=== PATIENT | male | born 1945 | race Caucasian/White ===

== ENCOUNTER → 2023-10-13 12:56 | Outpatient (REF) | payer MEDICARE, OTHER, SELFPAY | LOC: HWEVLT 12:56 | PROVIDERS: ATTENDING PHYSICIAN Radiology Diagnostic Radiology | DX: I83.891 Varicose veins of right lower extremity with other complications (principal) | CPT/HCPCS: 93971 ==

== ENCOUNTER 2024-06-13 13:54 | Outpatient (RCR) | payer OTHER, SELFPAY | END 2024-06-13 23:59 | disposition home or self-care (01) | LOC: RPT 13:54 | PROVIDERS: ATTENDING PHYSICIAN Orthopaedic Surgery; FAMILY PHYSICIAN Family Medicine | DX: M75.81 Other shoulder lesions, right shoulder (principal); Z73.6 Limitation of activities due to disability | CPT/HCPCS: 97010; 97110; 97112; 97162 ==

== ENCOUNTER 2024-07-11 08:53 | Outpatient (RCR) | payer OTHER, SELFPAY | END 2024-07-11 23:59 | disposition home or self-care (01) | LOC: RPT 08:53 | PROVIDERS: ATTENDING PHYSICIAN Orthopaedic Surgery; FAMILY PHYSICIAN Family Medicine | DX: M75.81 Other shoulder lesions, right shoulder (principal); Z73.6 Limitation of activities due to disability; M62.81 Muscle weakness (generalized); M25.511 Pain in right shoulder | CPT/HCPCS: 97010; 97110; 97112 ==

== ENCOUNTER 2024-07-25 19:43 | Emergency (ER) | payer OTHER, SELFPAY ==
[2024-07-25 19:49] VITALS: BP 138/75
[2024-07-25] MEDS: OMNIPAQUE 50 ML PO (20:00)
--- NOTE | 2024-07-25 20:01 | ED.GENMED ---
ED Provider Triage
<Corby Bowen PA-C - Last Filed: 07/25/24 20:06>
-
Patient seen by provider in Triage?: Seen in Triage
Attestation: A medical screening examination has been initiated by a qualified medical provider. Based on the assessment performed at this time, it has been determined that an emergent medical condition may exist and the patient has been informed
that further medical evaluation and possible additional diagnostic testing may be needed.
HPI: 78-year-old male presenting to the ER at the request of oncology neurology team for evaluation of hematuria and right lower quadrant abdominal pain. Patient has ostomy secondary to bladder. Hematuria for the last week or so. No fevers. Labs
and CT imaging ordered. Patient is otherwise stable
GENERAL: Alert , in no apparent distress
EYE: No visual abnormalities.
NECK: Trachea midline
ENT: No visible abnormalities.
LUNGS: No acute respiratory distress
NEUROLOGICAL: Alert and oriented
SKIN: Skin intact. No visible changes.
MUSCULOSKELETAL: Moving extremities normally
PSYCH: Normal and appropriate interaction.
This is a medical evaluation conducted in person to initiate diagnostic evaluation and provide initial therapeutics. Please see further documentation by the treating clinician.
History of Present Illness
<Corby Bowen PA-C - Last Filed: 07/25/24 20:06>
General
Chief Complaint: Ostomy Problem
Time Seen by Provider: 07/25/24 22:12
<KELTON Dumont - Last Filed: 07/25/24 23:37>
General
Source: patient and spouse ()
Exam Limitations: none
Nursing documentation reviewed up to this point in time: agreed with
History of Present Illness
History of Present Illness:
Pt is a 78M w/ PMH of prostate cancer with resection in 1999 with no sequelae, bladder cancer with resection in 2007 with urostomy placement, benign renal cysts on the L kidney with resection in 2020 with no sequelae, and a 3 cm R renal mass that is
followed by Ozzy who presents today with his for hematuria and lower abdominal pain x 5 days. Pt stated he has noticed the hematuria for a while in his urostomy but it has worsened since last Thursday. Pt states he wears an 'overnight bag'
every night and sees the most blood when changing the bag in the morning. He notes his urine has also seemed more cloudy. Pt also has lower abdominal pain x 5 days, which is worse in his RLQ. Pt states he originally went to urgent care earlier today
where he was provided with Bactrim for a UTI, but was concerned for 'something worse' so he came now to the ED. He also admits to some lower back pain and fatigue that is intermittent x 1 week. Pt denies BHAT, n/v/c/d, hematochezia, dizziness, chest
pain, cough, SOB.
Review of Systems
<KELTON Dumont - Last Filed: 07/25/24 23:37>
Review of Systems
Allergies reviewed?: Yes
Other source history: family
Constitutional: Reports fatigue
EENT: Reports no symptoms
Respiratory: Reports no symptoms
Cardiac: Reports no symptoms
ABD/GI: Reports abdominal pain (diffuse across lower quadrants, worse in RLQ)
: Reports bleeding (noticed blood in urostomy bag)
Musculoskeletal: Reports back pain (R lower, no CVA tenderness)
Neurological: Reports no symptoms
Phy Exam
<KELTON Dumont - Last Filed: 07/25/24 23:37>
General Physical Exam
General Presentation: well appearing and no apparent distress
General age: appears stated age
General Skin: warm and dry
General Habitus: normal and obese
General Mental: alert
General Hydration: appears well hydrated
General Chronic Disability: other (urostomy placed in RLQ)
Cardiovascular Exam
Cardiovascular Exam: regular rate/rhythm and no murmur
Pulmonary Exam
Pulmonary Exam: lungs clear and no respiratory distress
Gastrointestinal Exam
Gastrointestinal Exam: normal bowel sounds, soft, no pulsatile mass, no cva tenderness and tender (tender to palpation of LLQ and RLQ; worse in RLQ)
External Findings: other (urostomy placed in RLQ - no edema, erythema or discharge from site)
Palpation: left upper quadrant: No tenderness, left lower quadrant: Moderate tenderness, right upper quadrant: No tenderness and right lower quadrant: Severe tenderness
Auscultation of Abdomen: normal
Course
<Corby Bowen PA-C - Last Filed: 07/25/24 20:06>
Orders/Labs/Results
Orders:
Orders
07/25/24 19:56
Iohexol [Omnipaque] 50 ml .ROUTE .K-MED ONE
07/25/24 19:59
Iohexol [Omnipaque] See Protocol PO NOW STA
07/25/24 20:03
CBC/With Diff [Complete Blood Count/With Diff] Urgent
CMP [Comprehensive Metabolic Panel] Urgent
07/25/24 21:54
CT Abd/pel W Iv And Oral Contr Urgent
Comment:
Reason For Exam: RLQ pain
07/25/24 22:34
Urinalysis Reflex To Culture Urgent
Date Specimen was Collected: 07/25/24
Time Specimen was Collected: 22:32
Urine Microscopic Reflex Cult Urgent
Urine Culture Urgent
BERNY Source: U
Specimen Description:
Date Specimen was Collected: 07/25/24
Time Specimen was Collected: 22:32
Abnormal Lab Results
07/25/24 07/25/24
20:03 22:34
WBC 13.1 H 10^3/uL
(4.8-10.8)
RDW 14.6 H %
(11.5-14.5)
Abs Immat Gran (auto) 0.1 H 10^3/uL
(0-0.05)
Absolute Neuts (auto) 9.8 H 10^3/uL
(1.4-6.5)
Absolute Monos (auto) 1.1 H 10^3/uL
(0.1-0.6)
Lymphocytes % 15.5 L %
(20.5-51.1)
BUN 38 H mg/dl
(9-20)
Creatinine 1.7 H mg/dL
(0.7-1.3)
Glucose 143 H mg/dl
(70-99)
Ur Occult Blood Reflex 4+ A
(Negative)
Urine Nitrite (Reflex) Positive A
(Negative)
Leukocyte Esterase Rfl 2+ A
(Negative)
Urine RBC 7-10 A /HPF
(0-2)
Urine WBC (Reflex) 70-80 A /HPF
(0-5)
Urine Bacteria (Reflex) Few A
(Negative)
Urine Albumin (Reflex) 2+ A
(Neg - Trace)
07/25/24 20:03
07/25/24 20:03
Vital Signs
Initial and Last Documented VS:
Initial Vital Signs
Temp Pulse Resp BP Pulse Ox
99.1 F 79 14 138/75 96
07/25/24 19:49 07/25/24 19:49 07/25/24 19:49 07/25/24 19:49 07/25/24 19:49
Last Documented Vital Signs
Temp Pulse Resp BP Pulse Ox
99.1 F 79 14 126/78 95
07/25/24 19:49 07/25/24 19:49 07/25/24 19:49 07/25/24 23:00 07/25/24 23:30
Alvar[place]olt;Kendy Moreno, DO - Last Filed: 07/26/24 00:39>
Orders/Labs/Results
Orders:
Orders
07/25/24 19:56
Iohexol [Omnipaque] 50 ml .ROUTE .STK-MED ONE
07/25/24 19:59
Iohexol [Omnipaque] See Protocol PO NOW STA
07/25/24 20:03
CBC/With Diff [Complete Blood Count/With Diff] Urgent
CMP [Comprehensive Metabolic Panel] Urgent
07/25/24 21:54
CT Abd/pel W Iv And Oral Contr Urgent
Comment:
Reason For Exam: RLQ pain
07/25/24 22:34
Urinalysis Reflex To Culture Urgent
Date Specimen was Collected: 07/25/24
Time Specimen was Collected: 22:32
Urine Microscopic Reflex Cult Urgent
Urine Culture Urgent
BERNY Source: U
Specimen Description:
Date Specimen was Collected: 07/25/24
Time Specimen was Collected: 22:32
Abnormal Lab Results
07/25/24 07/25/24
20:03 22:34
WBC 13.1 H 10^3/uL
(4.8-10.8)
RDW 14.6 H %
(11.5-14.5)
Abs Immat Gran (auto) 0.1 H 10^3/uL
(0-0.05)
Absolute Neuts (auto) 9.8 H 10^3/uL
(1.4-6.5)
Absolute Monos (auto) 1.1 H 10^3/uL
(0.1-0.6)
Lymphocytes % 15.5 L %
(20.5-51.1)
BUN 38 H mg/dl
(9-20)
Creatinine 1.7 H mg/dL
(0.7-1.3)
Glucose 143 H mg/dl
(70-99)
Ur Occult Blood Reflex 4+ A
(Negative)
Urine Nitrite (Reflex) Positive A
(Negative)
Leukocyte Esterase Rfl 2+ A
(Negative)
Urine RBC 7-10 A /HPF
(0-2)
Urine WBC (Reflex) 70-80 A /HPF
(0-5)
Urine Bacteria (Reflex) Few A
(Negative)
Urine Albumin (Reflex) 2+ A
(Neg - Trace)
07/25/24 20:03
07/25/24 20:03
Vital Signs
Initial and Last Documented VS:
Initial Vital Signs
Temp Pulse Resp BP Pulse Ox
99.1 F 79 14 138/75 96
07/25/24 19:49 07/25/24 19:49 07/25/24 19:49 07/25/24 19:49 07/25/24 19:49
Last Documented Vital Signs
Temp Pulse Resp BP Pulse Ox
99.1 F 79 14 126/78 95
07/25/24 19:49 07/25/24 19:49 07/25/24 19:49 07/25/24 23:00 07/25/24 23:30
<KELTON Dumont - Last Filed: 07/25/24 23:37>
Orders/Labs/Results
Orders:
Orders
07/25/24 19:56
Iohexol [Omnipaque] 50 ml .ROUTE .[facility] ONE
07/25/24 19:59
Iohexol [Omnipaque] See Protocol PO NOW STA
07/25/24 20:03
CBC/With Diff [Complete Blood Count/With Diff] Urgent
CMP [Comprehensive Metabolic Panel] Urgent
07/25/24 21:54
CT Abd/pel W Iv And Oral Contr Urgent
Comment:
Reason For Exam: RLQ pain
07/25/24 22:34
Urinalysis Reflex To Culture Urgent
Date Specimen was Collected: 07/25/24
Time Specimen was Collected: 22:32
Urine Microscopic Reflex Cult Urgent
Urine Culture Urgent
BERNY Source: U
Specimen Description:
Date Specimen was Collected: 07/25/24
Time Specimen was Collected: 22:32
Abnormal Lab Results
07/25/24 07/25/24
20:03 22:34
WBC 13.1 H 10^3/uL
(4.8-10.8)
RDW 14.6 H %
(11.5-14.5)
Abs Immat Gran (auto) 0.1 H 10^3/uL
(0-0.05)
Absolute Neuts (auto) 9.8 H 10^3/uL
(1.4-6.5)
Absolute Monos (auto) 1.1 H 10^3/uL
(0.1-0.6)
Lymphocytes % 15.5 L %
(20.5-51.1)
BUN 38 H mg/dl
(9-20)
Creatinine 1.7 H mg/dL
(0.7-1.3)
Glucose 143 H mg/dl
(70-99)
Ur Occult Blood Reflex 4+ A
(Negative)
Urine Nitrite (Reflex) Positive A
(Negative)
Leukocyte Esterase Rfl 2+ A
(Negative)
Urine RBC 7-10 A /HPF
(0-2)
Urine WBC (Reflex) 70-80 A /HPF
(0-5)
Urine Bacteria (Reflex) Few A
(Negative)
Urine Albumin (Reflex) 2+ A
(Neg - Trace)
07/25/24 20:03
07/25/24 20:03
Vital Signs
Initial and Last Documented VS:
Initial Vital Signs
Temp Pulse Resp BP Pulse Ox
99.1 F 79 14 138/75 96
07/25/24 19:49 07/25/24 19:49 07/25/24 19:49 07/25/24 19:49 07/25/24 19:49
Last Documented Vital Signs
Temp Pulse Resp BP Pulse Ox
99.1 F 79 14 126/78 95
07/25/24 19:49 07/25/24 19:49 07/25/24 19:49 07/25/24 23:00 07/25/24 23:30
<KELTON Dumont - Last Filed: 07/25/24 23:37>
MDM/Problems Addressed
Differential Diagnosis Includes:
UTI, pyelonephritis, SBO, appendicitis
<Kendy Moreno DO - Last Filed: 07/26/24 00:39>
*Radiology
Radiology exam reviewed: radiology read reviewed
*Pulse Oximetry
Patient hypoxic: no
*Critical Care Note
Total Time (30-74mins, 75-104mins- exclusive of procedures): Not Applicable
ED Attending Note
<Corby Bowen PA-C - Last Filed: 07/25/24 20:06>
-
Portions of this chart may have been created with voice recognition software.� Occasional wrong word or��sound alike� substitutions may have occurred due to the inherent limitations of voice recognition software.
<Kendy Moreno DO - Last Filed: 07/26/24 00:39>
ED Attending Note
Patient seen and examined by attending physician: Yes
I performed the substantive portion of visit, reviewed & personally made and approve the management plan that is documented in note by myself or YANIRA.: Yes
ED Attending Note:
This is a 78-year-old gentleman who resides at home with his . He has history of prostate cancer status post prostatectomy in 1999. History of bladder cancer status post cystectomy with ileal conduit formation 2008. He did not require
adjuvant chemotherapy nor radiation but follows closely with oncologist, Dr. Lazcano with every 6-month surveillance MRIs due to renal masses with history of partial left nephrectomy 2020 with benign findings.
He has a known 3 cm suspicious mass right kidney that is slowly enlarging and has been recommended for resection. He admits to missing his most recent MRI which was due of this year.
He notes intermittent hematuria over the past few months, more frequent over the past few weeks with onset of generalized mild lower abdominal pain that began 5 to 6 days ago, persistent and progressive and now primarily right lower quadrant. No
history of similar episodes of abdominal pain. No other associated symptoms. He has not had a fever nor chills, no nausea or vomiting, no diarrhea or constipation. His appetite has been good. He has had mild right low back to right flank pain
over the past few days. He has not been taking anything for discomfort.
No recent injury.
Evaluated at urgent care today and urine dip suspicious for UTI. Was prescribed Bactrim DS which he has not started; instead recommended to present to the ED for further evaluation.
GENERAL: 78-year-old gentleman appears his stated age, bright and alert, pleasant, quite jovial, appears in no acute distress. is accompanying.
EYE: anicteric
NECK: Supple, nontender, no meningismus, no significant adenopathy.
ENT: oral mucosa is moist. No rhinorrhea.
CARDIAC: Regular rate and rhythm. no murmur.
LUNGS: Clear breath sounds bilaterally, no acute respiratory distress, no wheezes/rales/rhonchi
ABDOMEN: Soft, nondistended, moderate tenderness right lower quadrant without rebound or guarding. Ileal conduit right lower quadrant draining yellow minimally cloudy urine. No r/g, no cvat. normoactive BS.
NEUROLOGICAL: Alert and oriented x3, no focal neuro deficits. Gait is steady.
SKIN: Warm and dry, normal color, skin intact. No rash.
MUSCULOSKELETAL: No C/C/E. peripheral pulses are full and equal b/l. No palpable tenderness.
PSYCH: Normal and appropriate interaction.
Concern for UTI, pyelonephritis, appendicitis, right-sided diverticulitis, small bowel obstruction is much less likely.
Labs thus far remarkable for mildly elevated white blood cell count of 13.1.
Creatinine of 1.7, BUN of 38. Unclear as to patient's baseline. He denies history of renal insufficiency.
Check urinalysis and will plan for CT abdomen pelvis with oral contrast.
Urinalysis suspicious for UTI, nitrite positive, leukocyte esterase +2, 70-80 WBCs, few bacteria, 7-10 RBCs.
CAT scan concerning for moderate hydroureter with periureteral inflammation and generalized wall thickening of the ureter concerning for an ascending infection. There is no evidence of ureteric stone and no evidence of kidney involvement. There is
a 2.5 cm right kidney mass concerning for renal cell carcinoma. This is consistent with history of known right renal mass.
I suspect his right lower quadrant pain is related to urinary tract infection. Overall patient is well in appearance, has been afebrile, tolerating oral fluids well.
At this point no indication for hospitalization. Will give an IV dose of Rocephin and plan for 10-day course of doxycycline which is safer on renal function than the Bactrim.
Strict return precautions discussed.
Discharge Plan
Departure
Patient Disposition: Home (Routine Discharge)
Date of Disposition: 07/26/24
Time of Disposition: 00:36
Patient with high blood pressure during this ER visit?: No
Condition: Good
Discharge Problem:
Urinary tract infection
Instructions: Urinary Tract Infection - Men
Prescriptions:
New
doxycycline monohydrate 100 mg capsule
100 mg PO BID Qty: 20 1RF
Referrals:
Micky Gerber MD [Family Provider] - Call in 1-3 days for appt
Activity Restrictions/Additional Instructions:
Stay well-hydrated on a daily basis.
You can take Tylenol as needed for discomfort. Due to mildly elevated creatinine, I want you to avoid Motrin, Advil, Aleve, ibuprofen.
You have been prescribed doxycycline to take twice daily over the next 10 days. 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
If you develop a fever, severe pain or intractable vomiting, prompt return to the ER for further evaluation.
Interventions
Interventions:
*Risk Screen - Suicide Last Done: 07/25/24 19:49
*General Assessment Last Done: 07/25/24 19:49
*Neglect/Abuse Screening Last Done: 07/25/24 19:49
Discharge Date and Time
Print Language: SINHAL[place]
[2024-07-25 20:13] LABS: % Basophils 0.5 % (0-2); % Eosinophils 0.6 % (0-6); % Immature Granulocytes 0.5 % (0-0.5); % Lymphocytes 15.5 % (20.5-51.1); % Neutrophils 74.9 % (42.2-75.2); Absolute Basophils 0.1 10^3/uL (0-0.2); Absolute Eosinophils 0.1 10^3/uL (0-0.7); Absolute Immature Granulocytes 0.1 10^3/uL (0-0.05); Absolute Monocytes 1.1 10^3/uL (0.1-0.6); Absolute Neutrophils 9.8 10^3/uL (1.4-6.5); Hematocrit 48.8 % (39.0-52.0); Hemoglobin 16.6 g/dL (13.0-18.0); Mean Corpuscular Hgb 30.4 pg (27.0-31.0); Mean Corpuscular Volume 89.4 fL (80.0-94.0); Mean Platelet Volume 10.2 fL (7.4-10.4); Nucleated Red Blood Cells % 0 % (-); Platelet Count 227 10^3/uL (130-400); Red Blood Cell Count 5.46 10^6/uL (4.70-6.10); Red Cell Dist. Width 14.6 % (11.5-14.5); White Blood Cell Count 13.1 10^3/uL (4.8-10.8)
[2024-07-25 20:27] LABS: ALT (SGPT) 23 U/L (0-50); AST (SGOT) 26 U/L (17-59); Albumin 4.4 g/dl (3.5-5.0); Alkaline Phosphatase 65 U/L (38-126); Blood Urea Nitrogen 38 mg/dl (9-20); Calcium 9.7 mg/dl (8.4-10.2); Carbon Dioxide 29 mmol/L (22-30); Chloride 100 mmol/L (98-107); Glucose 143 mg/dl (70-99); Potassium 4.8 mmol/L (3.5-5.1); Sodium 141 mmol/L (135-145); Total Bilirubin 1.3 mg/dl (0.2-1.3); Total Protein 7.3 g/dl (6.3-8.2); eGFR 40.75
[2024-07-25 22:29] VITALS: BP 124/82
[2024-07-25 23:00] VITALS: BP 126/78
[2024-07-25 23:01] LABS: Urine Albumin 2+ (Neg - Trace); Urine Bilirubin Negative (Negative); Urine Character Very Cloudy (Clear); Urine Color Yellow; Urine Glucose Negative (Negative); Urine Ketone Negative (Negative); Urine Leukocyte 2+ (Negative); Urine Nitrite Positive (Negative); Urine Occult Blood 4+ (Negative); Urine Specific Gravity 1.015 (<1.030); Urine Urobilinogen Negative (Neg - 1+)
[2024-07-25 23:18] LABS: Urine Squamous Cell 0-2 /LPF (Few)
[2024-07-25 23:19] LABS: Urine Bacteria Few (Negative); Urine White Cell 70-80 /HPF (0-5)
[2024-07-26] MEDS: ROCEPHIN 2000 MG IV (01:06)
[2024-07-26 01:21] VITALS: BP 115/75
== END 2024-07-26 01:26 | disposition home or self-care (01) ==
LOC: EMR 19:43
PROVIDERS: Student in an Organized Health Care Education/Training Program; EMERGENCY PHYSICIAN Emergency Medicine; FAMILY PHYSICIAN Family Medicine
DX: N39.0 Urinary tract infection, site not specified (principal); R10.31 Right lower quadrant pain; R31.9 Hematuria, unspecified; R53.83 Other fatigue; N13.4 Hydroureter; N28.89 Other specified disorders of kidney and ureter; Z85.46 Personal history of malignant neoplasm of prostate; Z85.51 Personal history of malignant neoplasm of bladder; Z90.79 Acquired absence of other genital organ(s)
CPT/HCPCS: 99284; 96374; 74177; 80053; 81003; 81015; 85025; 87077; 87086; Q9967

== ENCOUNTER 2024-08-05 15:11 | Inpatient (IN) | payer OTHER, SELFPAY ==
[2024-08-05] VITALS (20 sets, daily range): BP systolic 69–129; BP diastolic 41–109; BMI 36.6; BMI 35.6
--- NOTE | 2024-08-05 10:56 | ED.GENMED ---
History of Present Illness
General
Chief Complaint: Urinary Symptoms
Source: patient
Exam Limitations: none
Time Seen by Provider: 08/05/24 09:38
History of Present Illness
History of Present Illness:
78-year-old male presents for reevaluation. He was here about 10 days ago diagnosed with UTI and possible ascending urinary tract infection. He has history of prostate and bladder cancer. He has a urostomy. He was started on doxycycline last
visit which she finished today. He notes ongoing symptoms of fatigue achiness now notes low blood pressure. He denies measurable fever but does note chills. Intermittently he has had a headache with neck stiffness. No chest pain or shortness of
breath.
Phy Exam
Physical Exam
Physical Exam:
General: Well-appearing male no acute respiratory distress
HEENT: Normocephalic atraumatic
Heart: Regular rate and rhythm
Lungs: Clear no wheeze
Abdomen soft mildly tender inferior to the urostomy. No guarding rebound normal bowel sounds no significant costovertebral angle tenderness
Extremities: No cyanosis or edema
Skin: Warm, no rash
Course
Orders/Labs/Results
Orders:
Orders
08/05/24 10:50
CRP [C-Reactive Protein] Urgent
Complete Blood Count/With Diff Urgent
Comprehensive Metabolic Panel Urgent
Free T4 Urgent
Lactic Acid Q4H
Comment: CANCEL 2nd LACTIC ACID IF 1st LACTIC ACID IS LESS THAN 2
Lipase Urgent
Comment: ADD ON
Sed Rate [Erythrocyte Sed Rate] Urgent
TSH Reflex To Free T4 Urgent
Urinalysis Reflex To Culture Urgent
Date Specimen was Collected: 08/05/24
Time Specimen was Collected: 09:55
Urine Microscopic Reflex Cult Urgent
Blood Culture Q30M
BERNY Source: Blood/Venous
Specimen Description:
Blood Culture Q30M
BERNY Source: Blood/Venous
Specimen Description:
Urine Culture Urgent
BERNY Source: U
Specimen Description:
Date Specimen was Collected: 08/05/24
Time Specimen was Collected: 09:55
08/05/24 11:44
Add On- LAB Urgent
Tests Added?: lipase
US Abdomen Complete/Upper Urgent
Comment:
Reason For Exam: abdominal pain, elevated LFT
08/05/24 11:50
0.9% Sodium Chloride 1000 ml [Nss] 1,000 ml IV BOLUS
08/05/24 13:00
CefTRIAXone [Rocephin] 1,000 mg IV NOW STA
Abnormal Lab Results
08/05/24
10:50
RDW 15.0 H %
(11.5-14.5)
Abs Immat Gran (auto) 0.1 H 10^3/uL
(0-0.05)
Absolute Lymphs (auto) 1.0 L 10^3/uL
(1.2-3.4)
Immature Gran % 0.7 H %
(0-0.5)
Neutrophils % 76.4 H %
(42.2-75.2)
Lymphocytes % 13.7 L %
(20.5-51.1)
ESR 22 H mm/hour
(0-20)
Sodium 133 L mmol/L
(135-145)
BUN 36 H mg/dl
(9-20)
Creatinine 1.7 H mg/dL
(0.7-1.3)
Glucose 119 H mg/dl
(70-99)
AST 79 H U/L
(17-59)
ALT 170 H U/L
(0-50)
Alkaline Phosphatase 204 H U/L
(38-126)
C-Reactive Protein 55.20 H mg/L
(0.0-10.00)
Total Protein 6.0 L g/dl
(6.3-8.2)
TSH (Reflex) 7.47 H uIU/ml
(0.47-4.68)
Ur Occult Blood Reflex 4+ A
(Negative)
Urine Bilirubin 1+ A
(Negative)
Leukocyte Esterase Rfl 2+ A
(Negative)
Urine RBC 40-50 A /HPF
(0-2)
Urine WBC (Reflex) 30-40 A /HPF
(0-5)
Urine Bacteria (Reflex) Moderate A
(Negative)
08/05/24 10:50
08/05/24 10:50
Vital Signs
Initial and Last Documented VS:
Initial Vital Signs
Temp Pulse Resp BP Pulse Ox
99 F 78 16 92/61 98
08/05/24 09:26 08/05/24 09:26 08/05/24 09:26 08/05/24 09:26 08/05/24 09:26
Last Documented Vital Signs
Temp Pulse Resp BP Pulse Ox
97.6 F 68 17 100/69 98
08/05/24 10:58 08/05/24 12:45 08/05/24 12:45 08/05/24 12:43 08/05/24 12:45
MDM/Problems Addressed
Differential Diagnosis Includes:
Patient with ongoing myalgias and fatigue. Has been here recently for UTI just finished doxycycline. Initially was somewhat soft and blood pressure at triage. Will recheck. Labs pending including cultures inflammatory markers. Abdomen exam
relatively benign no indication for repeat imaging. No signs of meningitis on exam.
*Critical Care Note
Total Time (30-74mins, 75-104mins- exclusive of procedures): Not Applicable
Update Note
Update Note:
Urinalysis with UTI. Elevated LFTs and ultrasound was ordered because of this. Ultrasound was negative. Blood pressure running on the lower end fluids ordered Rocephin ordered for persistent UTI will admit to hospital for persistent UTI despite
oral antibiotic
ED Attending Note
-
Portions of this chart may have been created with voice recognition software.� Occasional wrong word or��sound alike� substitutions may have occurred due to the inherent limitations of voice recognition software.
Discharge Plan
Departure
Patient Disposition: Admit
Date of Disposition: 08/05/24
Time of Disposition: 13:25
Admit to: Telemetry
Presentation/result/management discussed w/ accepting MD/DO: Hospitalist
Discharge Problem:
Acute UTI
Prescriptions:
No Action
levothyroxine [Synthroid] 175 mcg Tablet
175 mcg PO DAILY
acetaminophen [Tylenol] 325 mg Tablet
650 mg PO Q6HPRN PRN (Reason: mild pain)
Theragen Tablet
1 tab PO DAILY
lisinopril 40 mg Tablet
20 mg PO DAILY
rosuvastatin [Crestor] 10 mg Tablet
10 mg PO DAILY
Referrals:
Micky Gerber MD [Family Provider] -
Interventions
Interventions:
*Risk Screen - Suicide Last Done: 08/05/24 09:26
*General Assessment Last Done: 08/05/24 09:26
*Neglect/Abuse Screening Last Done: 08/05/24 09:26
ED- Fall Risk Assessment Last Done: 08/05/24 10:58
*ED COVID-19 Vaccine History Last Done: 08/05/24 10:58
ED-Male Genitourinary Assessment Last Done: 08/05/24 10:58
Discharge Date and Time
Print Language: [place]
[2024-08-05 11:08] LABS: % Basophils 0.4 % (0-2); % Eosinophils 1.1 % (0-6); % Immature Granulocytes 0.7 % (0-0.5); % Lymphocytes 13.7 % (20.5-51.1); % Monocytes 7.7 % (1.7-9.3); % Neutrophils 76.4 % (42.2-75.2); Absolute Eosinophils 0.1 10^3/uL (0-0.7); Absolute Immature Granulocytes 0.1 10^3/uL (0-0.05); Absolute Monocytes 0.5 10^3/uL (0.1-0.6); Absolute Neutrophils 5.4 10^3/uL (1.4-6.5); Hematocrit 42.9 % (39.0-52.0); Hemoglobin 14.5 g/dL (13.0-18.0); Mean Corp Hgb Conc. 33.8 g/dL (33.0-37.0); Mean Corpuscular Volume 88.8 fL (80.0-94.0); Mean Platelet Volume 9.9 fL (7.4-10.4); Nucleated Red Blood Cells % 0 % (-); Platelet Count 175 10^3/uL (130-400); Red Blood Cell Count 4.83 10^6/uL (4.70-6.10)
[2024-08-05 11:24] LABS: ALT (SGPT) 170 U/L (0-50); AST (SGOT) 79 U/L (17-59); Albumin 3.5 g/dl (3.5-5.0); Alkaline Phosphatase 204 U/L (38-126); Blood Urea Nitrogen 36 mg/dl (9-20); Carbon Dioxide 25 mmol/L (22-30); Chloride 101 mmol/L (98-107); Estimated Creatinine Clearance 46 ml/min; Glucose 119 mg/dl (70-99); Potassium 4.6 mmol/L (3.5-5.1); Sodium 133 mmol/L (135-145); Total Bilirubin 0.9 mg/dl (0.2-1.3); eGFR 40.75
[2024-08-05 11:37] LABS: Urine Albumin Trace (Neg - Trace); Urine Bilirubin 1+ (Negative); Urine Character Very Cloudy (Clear); Urine Color Yellow; Urine Glucose Negative (Negative); Urine Ketone Negative (Negative); Urine Leukocyte 2+ (Negative); Urine Nitrite Negative (Negative); Urine Occult Blood 4+ (Negative); Urine Urobilinogen 1+ (Neg - 1+)
[2024-08-05 11:56] LABS: TSH Reflex To Free T4 7.47 uIU/ml (0.47-4.68)
[2024-08-05 12:09] LABS: Urine Squamous Cell 0-2 /LPF (Few)
[2024-08-05 12:11] LABS: Urine Red Blood Cell 40-50 /HPF (0-2)
[2024-08-05 12:12] LABS: Urine Bacteria Moderate (Negative); Urine White Cell 30-40 /HPF (0-5)
[2024-08-05 12:32] LABS: Erythrocyte Sed Rate 22 mm/hour (0-20)
[2024-08-05 12:33] LABS: Lipase 104 U/L (23-300)
[2024-08-05] MEDS: NSS 1000 IV ×3 (12:43→23:08)
[2024-08-05] MEDS: ROCEPHIN 1000 MG IV (13:34)
--- NOTE | 2024-08-05 13:54 | HPS.HSE ---
Family Physician
-
Family Physician: Micky Gerber
Chief Complaint
-
Body Aches and Dizziness
History of Present Illness
Patient is a 78 y/o male past medical history of hypertension, hyperlipidemia, prostate and bladder cancer who presents with weakness, dizziness, and generalized body aches. Patient was seen here on Jul 25 and diagnosed with a urinary tract
infection. He was initially given doxycycline but then received a call that it was resistant and was changed to Levaquin which he only took one dose, and then changed to Bactrim which he completed yesterday. He reports his prior right lower
quadrant pain resolved, but he developed new symptoms of weakness, body aches, and dizziness. He denies fevers, sweats or chills.
Medical History
Past Medical History
Past Medical History: Reports None
Additional Past Medical History:
Essential Hypertension
Hyperlipidemia
Hypothyroidism
Prostate Cancer
Bladder Cancer
Renal Mass
Past Surgical History: Reports Other
Additional Past Surgical History:
TURP
Cystectomy with Ileal Conduit
Partial Left Nephrectomy for non-cancerous mass
Heria Repair
Tonsillectomy
Social History
Tobacco: Non-smoker
Alcohol: None
Family History
Family History: Not pertinent
Allergies / Home Medications
Allergies reflects when Allergies were last updated in [facility].
Home Medications with original date entered in [facility]
Allergy/Medication List:
Allergies
Allergy/AdvReac Type Severity Reaction Status Date / Time
No Known Allergies Allergy Verified 08/05/24 09:26
Home Medications
acetaminophen 325 mg tablet (Tylenol) 650 mg PO Q6HPRN PRN mild pain 08/05/24
levothyroxine 175 mcg tablet (Synthroid) 175 mcg PO DAILY Thyroid 08/05/24
lisinopril 40 mg tablet 20 mg PO DAILY Blood Pressure 08/05/24
rosuvastatin 10 mg tablet (Crestor) 10 mg PO DAILY High Cholesterol 08/05/24
therapeutic multivitamin 1 tab PO DAILY Supplement 08/05/24
Review of Systems
-
A 12 point ROS was completed and negative except as noted: Yes
Constitutional: Denies Fever or Chills
Respiratory: Denies Cough or Trouble Breathing
Cardiac: Denies Chest Pain or Palpitations
Abdomen/GI: Denies Abdominal Pain, Nausea, Vomiting or Diarrhea
Physical Exam
Vital Signs
Vital Signs
Temp Pulse Resp BP Pulse Ox
97.6 F 72 18 85/59 97
08/05/24 10:58 08/05/24 13:30 08/05/24 13:30 08/05/24 13:00 08/05/24 13:15
Physical Exam
General: Comfortable and Conversant
HEENT: NormoCephalic, Anicteric and Moist mucous membranes
Respiratory: Clear and Non Labored Respirations
Cardiac: S1/S2 and Regular Rhythm
GI: Soft and Non Tender
Genito-urinary: Other (Right lower quadrant urostomy)
Musculoskeletal: No Clubbing, No Cyanosis and No Edema
Skin: Warm and Dry
Neuro: Awake, Alert, Oriented and Nonfocal/grossly intact
Psych: Calm
Laboratory Results
-
08/05/24 10:50
08/05/24 10:50
Laboratory Results
Lactic Acid Cancelled 08/05/24 14:00
Total Bilirubin 0.9 mg/dl (0.2-1.3) 08/05/24 10:50
AST 79 U/L (17-59) H 08/05/24 10:50
ALT 170 U/L (0-50) H 08/05/24 10:50
Alkaline Phosphatase 204 U/L (38-126) H 08/05/24 10:50
Lipase 104 U/L (23-300) 08/05/24 10:50
Data Reviewed
-
Lab Data: Labs Reviewed by me
Impression/Plan
-
Hypotension, likely related to volume, does not clinically appear septic
-Hold lisinopril
-Continue IVFs
-Monitor blood pressure closely
Elevated Creatinine, unknown baseline - possible PHILLIP due to Bactrim
-Hold lisinopril
-Continue IVFs
-Recheck Creatinine in AM
Abnormal Urinalysis, unclear if persistent UTI vs chronic pyuria with ileal conduit
-Continue ceftriaxone
-Await urine culture
Abnormal LFTs, possibly related to hypotension
-Abd US with evidence of fatty liver
-Recheck LFTs in AM
Hyperlipidemia
-Hold statin
Hypothyroidism
-Continue levothyroxine
Renal Mass
-Patient report partial left nephrectomy for mass which was non-cancerous. He reports his Urologist has been following the right renal mass for several years
DVT proph: SC Heparin
Code Status: Full Code
--- NOTE | 2024-08-05 14:24 | W.PN.UPDATE ---
Update Note
Progress Note Update
This is an addendum to the H&P written by Poonam Hay on 08/05/2024. Patient seen and examined independently with PA.
78-year-old male past medical history of prostate cancer/bladder cancer status post urostomy, partial left nephrectomy, hypertension, hypothyroidism, hyperlipidemia presenting for fatigue/headache/hypotension/chills.
Recently came to the emergency room on 07/25 with hematuria/right lower quadrant abdominal pain and found to have UTI and discharged on doxycycline. Urine culture subsequently showed Proteus resistant to doxycycline and he was recommended to take
Levaquin but only took 1 dose but stopped concern for Achilles tendon rupture. He was switched to Bactrim and completed 7-day course.
Labs show PHILLIP versus CKD with creatinine 1.7. Liver enzymes elevated.
Patient hypotensive but clinically not septic. UA shows pyuria however patient received adequate antibiotic course. Hypotension/PHILLIP possibly due to Bactrim in combination with lisinopril. IV fluids, urine culture pending, ceftriaxone for now.
Liver enzymes likely elevated secondary to hypotension.
[2024-08-05] MEDS: HEPARIN 5000 UNITS SC ×2 (16:55→23:08)
--- NOTE | 2024-08-05 17:27 | PTCARENOTE ---
pt aaox3. states pain in back of head and neck area. tylenol given. ambulates from stretcher to bed. room air breath sounds clear. ivf running as ordered. urostomy bud pink draining yellow.
[2024-08-05] MEDS: TYLENOL 650 MG PO (17:31)
--- NOTE | 2024-08-05 20:00 | PTCARENOTE ---
Patient received in bed, AAOX3. NSR on monitor, blood pressure as documented. Lungs clear pulse ox 98%. Abdomen round obese. Urostomy draining yellow urine. #20 g in RAC with IVF infusing as documented. Call meyer within reach
[2024-08-05 21:35] LABS: Glucose - Point of Care 118 mg/dl (70-99)
[2024-08-06] VITALS (13 sets, daily range): BP systolic 93–114; BP diastolic 61–80; PULSE 62–67; BMI 35.6
[2024-08-06] MEDS: SYNTHROID 175 MCG PO (05:03)
[2024-08-06 05:22] LABS: Hematocrit 39.6 % (39.0-52.0); Hemoglobin 13.1 g/dL (13.0-18.0); Mean Corp Hgb Conc. 33.1 g/dL (33.0-37.0); Mean Corpuscular Hgb 29.5 pg (27.0-31.0); Mean Corpuscular Volume 89.2 fL (80.0-94.0); Mean Platelet Volume 9.7 fL (7.4-10.4); Platelet Count 182 10^3/uL (130-400); Red Blood Cell Count 4.44 10^6/uL (4.70-6.10); Red Cell Dist. Width 15.2 % (11.5-14.5); White Blood Cell Count 7.3 10^3/uL (4.8-10.8)
[2024-08-06 05:40] LABS: ALT (SGPT) 154 U/L (0-50); AST (SGOT) 81 U/L (17-59); Albumin 3.2 g/dl (3.5-5.0); Alkaline Phosphatase 188 U/L (38-126); Blood Urea Nitrogen 32 mg/dl (9-20); Calcium 8.4 mg/dl (8.4-10.2); Carbon Dioxide 20 mmol/L (22-30); Chloride 105 mmol/L (98-107); Estimated Creatinine Clearance 55 ml/min; Glucose 109 mg/dl (70-99); Potassium 5.3 mmol/L (3.5-5.1); Sodium 134 mmol/L (135-145); Total Bilirubin 0.9 mg/dl (0.2-1.3); Total Protein 5.7 g/dl (6.3-8.2); eGFR 51.45
[2024-08-06] MEDS: HEPARIN 5000 UNITS SC ×2 (07:42→17:05)
--- NOTE | 2024-08-06 08:00 | W.PN.HOSP.TC ---
Today's Communication/Plan
-
cont rocephin pending Ucx
switch to 0.45% bicarb drip, increase rate
BMP q12h
Assessment / Plan
Assessment / Plan
78yo M with PMHx of R renal CA, monitored by his urologist, Hx of diverting urostomy 2/2 urinary bladder resection came with gheadache and generalizerd malaise. Was seen in ED 2 weeks prior due to cloudy urine and RLQ abd dyscomfort and diagnosed
with UTI, started on Doxy that later switched to Bactrim. On admission found pyuria, hypotension, PHILLIP and hypercalemia, most likely hypotension 2/2 Bactrim complications
A/P:
#Hypotension, asymptomatic
#PHILLIP
#Hypercalemia
#Resistant UTI
CT abd on 07/25/24: thickening of the wall the right ureter including extending into the renal pelvis and the calyces
Ceftriaxone pending repeated Ucx
Bcx
Hydration
PHILLIP resolving - will hold off repeated imaging
#Transaminitis
#Elevated Alk.phos
RUQ US unremarkable for biliary or hepatic acute pathology
Most likely 2/2 hypotension
follow LFT
#Esential HTN
hold Lisinopril
#Mild hyperkalemia
2/2 Bactrim
follow
#R renal CA
Scheduled for monitoring by his doctor - repeated MRI in November
#Hypothyroidism
TSH elevated
FT4 WNL
Increase Synthroid, repeat TSH in 2-3 weeks with PCP - patient verbalized understanding of the instructions
DVT ppx hep
Full code
I have spent at least 59min reviewing chart, test results and direct patient care
Anticipated Discharge: > 48 hours
Subjective/Interval History
-
Date of Service: August 06, 2024
Objective Data
-
Labs:
Laboratory Results
08/06/24
04:58
WBC 7.3
Hgb 13.1
Hct 39.6
Plt Count 182
Sodium 134 L
Potassium 5.3 H
Chloride 105
Carbon Dioxide 20 L
BUN 32 H
Creatinine 1.4 H
Glucose 109 H
Calcium 8.4
Total Bilirubin 0.9
AST 81 H
ALT 154 H
Alkaline Phosphatase 188 H
Vital Signs:
Vital Signs
Temp Pulse Resp BP Pulse Ox
98.6 F 65 17 103/66 96
08/06/24 03:00 08/06/24 05:00 08/06/24 05:00 08/06/24 04:00 08/06/24 05:00
I&O
08/05/24 08/06/24 08/07/24
06:59 06:59 06:59
Intake Total 680 / 680
Output Total 850 / 850
Balance -170 / -170
Review of Systems
-
History Source: Patient
All other systems: Reviewed and negative
Physical Exam
-
General: Comfortable
HEENT: Normocephalic and Atraumatic
Respiratory: Clear to Auscultation
GI: Soft, Nontender, Nondistended and Other (diverting urostomy)
Genito-urinary: Turbid Urine
Musculoskeletal: No Clubbing, No Cyanosis and No Edema
Skin: Warm
Neuro: Awake, Alert, Oriented and AO x 3
Psych: Calm
[2024-08-06 08:22] LABS: COVID-19 Antigen Negative (Negative)
[2024-08-06] MEDS: SODIUM BICARBONATE 1075 MEQ IV ×2 (09:05→17:12)
--- NOTE | 2024-08-06 09:40 | CM ---
Pt seen bedside. Initial assessment completed.
Pt lives w/ spouse in a 4STH-3 steps to enter from front door and garage
Pt is independent, denies any DME for ambulating or daily functioning. Per pt, he has grab bars in the bathroom that were already built in prior to purchasing his home.
Pt denies SNF/VN/PT. Pt engaged in OP therapy for tendonitis in his shoulder
Address, point of contact and insurances confirmed
PCP: Dr. Micky Gerber
Pharmacy: [facility].
Pt uses [facility] for mailed medications
Plan: CM will cont following hospital course for d/c planning
[2024-08-06 10:13] LABS: Cortisol, Random 10.5 ug/dl
--- NOTE | 2024-08-06 13:55 | PTCARENOTE ---
Pt received in bed @ 0700. AAOx3. Denying pain or dizziness or weakness. SaO2 96% on room air. Lungs clear to auscultation. Sinus rhythm on security monitor. SBP 90s - 100s. MAP > 65 without pressors. Pt requesting to ambulate in room. Orthostatic
blood pressure completed without observed drop in blood pressure or increase in heart rate. Pt assisted to bathroom where he was able to perform hygiene. Assisted OOB to chair. Urostomy draining yellow urine. 1/2 NSS with Sodium Bicarbonate 75meq @
125ml/hr through right wrist #22. Right AC #20 flushed and capped. Downgraded to med/surg.
[2024-08-06] MEDS: ROCEPHIN 1000 MG IV (14:04)
[2024-08-06] MEDS: STERILE WATER FOR INJECTION 10 ML IV ×2 (14:05→17:05)
[2024-08-06] MEDS: MAXIPIME 2000 MG IV (17:05)
[2024-08-06] MEDS: ProAmatine 2.5 MG PO (17:10)
[2024-08-06 22:57] LABS: Blood Urea Nitrogen 29 mg/dl (9-20); Calcium 8.8 mg/dl (8.4-10.2); Carbon Dioxide 23 mmol/L (22-30); Chloride 101 mmol/L (98-107); Estimated Creatinine Clearance 64 ml/min; Glucose 105 mg/dl (70-99); Potassium 4.6 mmol/L (3.5-5.1); Sodium 135 mmol/L (135-145); eGFR > 60.00
[2024-08-07] MEDS: HEPARIN 5000 UNITS SC ×2 (01:21→09:02)
[2024-08-07] MEDS: SODIUM BICARBONATE 1075 MEQ IV (01:21)
[2024-08-07] MEDS: SYNTHROID 88 MCG PO (05:18)
[2024-08-07] MEDS: STERILE WATER FOR INJECTION 10 ML IV (05:18)
[2024-08-07] MEDS: SYNTHROID 100 MCG PO (05:18)
[2024-08-07] MEDS: MAXIPIME 2000 MG IV (05:18)
[2024-08-07 07:00] LABS: % Basophils 0.9 % (0-2); % Eosinophils 3.3 % (0-6); % Immature Granulocytes 0.9 % (0-0.5); % Lymphocytes 26.6 % (20.5-51.1); % Monocytes 10.8 % (1.7-9.3); % Neutrophils 57.5 % (42.2-75.2); Absolute Basophils 0.1 10^3/uL (0-0.2); Absolute Eosinophils 0.2 10^3/uL (0-0.7); Absolute Immature Granulocytes 0.1 10^3/uL (0-0.05); Absolute Lymphocytes 1.5 10^3/uL (1.2-3.4); Absolute Monocytes 0.6 10^3/uL (0.1-0.6); Absolute Neutrophils 3.3 10^3/uL (1.4-6.5); Hematocrit 37.3 % (39.0-52.0); Hemoglobin 12.3 g/dL (13.0-18.0); Mean Corpuscular Hgb 29.6 pg (27.0-31.0); Mean Corpuscular Volume 89.9 fL (80.0-94.0); Mean Platelet Volume 10.2 fL (7.4-10.4); Nucleated Red Blood Cells % 0 % (-); Platelet Count 201 10^3/uL (130-400); Red Blood Cell Count 4.15 10^6/uL (4.70-6.10); Red Cell Dist. Width 15.3 % (11.5-14.5); White Blood Cell Count 5.7 10^3/uL (4.8-10.8)
[2024-08-07 07:33] LABS: ALT (SGPT) 133 U/L (0-50); AST (SGOT) 64 U/L (17-59); Albumin 3.1 g/dl (3.5-5.0); Alkaline Phosphatase 187 U/L (38-126); Blood Urea Nitrogen 27 mg/dl (9-20); Calcium 8.5 mg/dl (8.4-10.2); Carbon Dioxide 26 mmol/L (22-30); Chloride 104 mmol/L (98-107); Estimated Creatinine Clearance 59 ml/min; Glucose 111 mg/dl (70-99); Potassium 4.7 mmol/L (3.5-5.1); Sodium 137 mmol/L (135-145); Total Bilirubin 0.5 mg/dl (0.2-1.3); Total Protein 5.6 g/dl (6.3-8.2); eGFR 56.23
[2024-08-07 07:46] VITALS: BP 115/70
[2024-08-07 08:47] LABS: Procalcitonin 0.22 ng/ml (0.0-0.25)
[2024-08-07] MEDS: ProAmatine 2.5 MG PO (09:02)
--- NOTE | 2024-08-07 10:49 | W.PN.HOSP.TC ---
Today's Communication/Plan
-
dc
Assessment / Plan
Assessment / Plan
78yo M with PMHx of R renal CA, monitored by his urologist, Hx of cystectomy and prostatectomy with diverting urostomy came withgheadache and generalized malaise. Was seen in ED 2 weeks prior due to cloudy urine and RLQ abd discomfort and diagnosed
with UTI, started on Doxy that later switched to Bactrim. On admission found pyuria, hypotension, PHILLIP and hyperkalemia, most likely hypotension 2/2 Bactrim complications, also concern for undertreated infection and interaction with Lisinopril.
Remained normotensive and asymptomatic during ambulation on the day of d/c. Lisinopril stopped and patient will monitor his BP daily and follow with PCP. Concern for undertreated infection: reasonable to cont Cefdinir upon d/c. Increase Synthroid,
repeat TSH in 2-3 weeks with PCP - patient verbalized understanding of the instructions. Medically stable for d/c
A/P:
#Hypotension, asymptomatic
#PHILLIP
#Hyperkalemia
#Resistant UTI
CT abd on 07/25/24: thickening of the wall the right ureter including extending into the renal pelvis and the calyces. Repeated on 08/16/24: Mild dilation of the right renal pelvis and right ureter. Interval resolution of right urothelial thickening
and adjacent fat stranding, suggesting improvement in right ureteritis/ascending infection.
Ucx neg.
Concern for undertreated infection: reasonable to cont Cefdinir upon d/c
Bcx
Hydration
PHILLIP resolving - will hold off repeated imaging
#Transaminitis
#Elevated Alk.phos
RUQ US unremarkable for biliary or hepatic acute pathology
Most likely 2/2 hypotension
follow LFT - not worsening
Outpatient LFT advised
#Essential HTN
hold Lisinopril
#Mild hyperkalemia
2/2 Bactrim
follow
#R renal CA
Scheduled for monitoring by his doctor - repeated MRI in November
#Hypothyroidism
TSH elevated
FT4 WNL
Increase Synthroid, repeat TSH in 2-3 weeks with PCP - patient verbalized understanding of the instructions
DVT ppx hep
Full code
I have spent at least 39min reviewing chart, test results and direct patient care
Anticipated Discharge: Today
Subjective/Interval History
-
Date of Service: August 07, 2024
Objective Data
-
Labs:
Laboratory Results
08/06/24 08/07/24
22:28 05:46
WBC 5.7
Hgb 12.3 L
Hct 37.3 L
Plt Count 201
Sodium 135 137
Potassium 4.6 4.7
Chloride 101 104
Carbon Dioxide 23 26
BUN 29 H 27 H
Creatinine 1.2 1.3
Glucose 105 H 111 H
Calcium 8.8 8.5
Total Bilirubin 0.5
AST 64 H
ALT 133 H
Alkaline Phosphatase 187 H
Vital Signs:
Vital Signs
Temp Pulse Resp BP Pulse Ox
97.9 F 58 17 115/70 97
08/07/24 07:46 08/07/24 07:46 08/07/24 07:46 08/07/24 07:46 08/07/24 07:46
I&O
08/06/24 08/07/24 08/08/24
06:59 06:59 06:59
Intake Total 680 / 680 1600 / 1600
Output Total 850 / 850 3000 / 3000
Balance -170 / -170 -1400 / -1400
Review of Systems
-
History Source: Patient
All other systems: Reviewed and negative
Physical Exam
-
General: No Apparent Distress
HEENT: Normocephalic
Respiratory: Clear to Auscultation
GI: Soft, Nontender and Nondistended
Genito-urinary: Other (urostomy bag)
Neuro: Awake, Alert, Oriented and AO x 3
Psych: Calm
--- NOTE | 2024-08-07 11:01 | W.DCSUMMARY ---
Discharge Summary
Discharge Data
Date of Admission: 08/05/24
Date of Discharge: 08/07/24
-
Pending Results: No
Hospital Course
78yo M with PMHx of R renal CA, monitored by his urologist, Hx of cystectomy and prostatectomy with diverting urostomy came withgheadache and generalized malaise. Was seen in ED 2 weeks prior due to cloudy urine and RLQ abd discomfort and diagnosed
with UTI, started on Doxy that later switched to Bactrim. On admission found pyuria, hypotension, PHILLIP and hyperkalemia, most likely hypotension 2/2 Bactrim complications, also concern for undertreated infection and interaction with Lisinopril.
Remained normotensive and asymptomatic during ambulation on the day of d/c. Lisinopril stopped and patient will monitor his BP daily and follow with PCP. Concern for undertreated infection: reasonable to cont Cefdinir upon d/c. Increase Synthroid,
repeat TSH in 2-3 weeks with PCP - patient verbalized understanding of the instructions. Medically stable for d/c
I have spent at least 38min discharging the patient
Patient was managed for:
#Hypotension, asymptomatic
#PHILLIP
#Hyperkalemia
#Resistant UTI
#Transaminitis
#Elevated Alk.phos
#Essential HTN
#Mild hyperkalemia
#R renal CA
#Hypothyroidism
Discharge Plan
-
Patient Disposition: Home (Routine Discharge)
Discharge Diagnosis/Procedures: Hypotension, PHILLIP
Diet: Regular
Activity: As tolerated
Driving Restrictions: As prior to admission
Activity Restrictions/Additional Instructions:
Measure blood pressure daily and keep the log - follow up with your PCP in 1 week to repeat blood test for liver function and kidney function and if you need blood pressure meds
Referrals:
Micky Gerber MD [Family Provider] - in less than 1 week
(repeat LFT and BMP, follow BP off lisinopril
Repeat TSH in 2-3 weeks - Synthroid increased)
Prescriptions:
New
levothyroxine 100 mcg Tablet
100 mcg PO DAILY @ 0600 Qty: 30 0RF
levothyroxine 88 mcg Tablet
88 mcg PO DAILY @ 0600 Qty: 30 0RF
cefdinir 300 mg capsule
300 mg PO BID Qty: 20 0RF
Continued
acetaminophen [Tylenol] 325 mg Tablet
650 mg PO Q6HPRN PRN (Reason: mild pain)
therapeutic multivitamin Tablet
1 tab PO DAILY
rosuvastatin [Crestor] 10 mg Tablet
10 mg PO DAILY
Discontinued
levothyroxine [Synthroid] 175 mcg Tablet
175 mcg PO DAILY
lisinopril 40 mg Tablet
20 mg PO DAILY
Discharge Orders:
Discharge Patient (As Directed); Ordered 08/07/24
Ordered By: Eddie Doyle
Discharge Date and Time
Print Language: [place]ORE[place]
[2024-08-07] MEDS: OMNICEF 300 MG PO (12:45)
[2024-08-07 12:57] VITALS: BP 139/75
[2024-08-08 19:54] LABS: Hepatitis B Surface Antigen Negative (Negative)
[2024-08-08 20:13] LABS: Hepatitis B Core Ab, Total Negative (Negative); Hepatitis C Antibody Negative (Negative)
[2024-08-08 20:14] LABS: Hepatitis B Surface Antibody Negative
[2024-08-08 22:14] LABS: Hepatitis A IgM Antibody Negative (Negative)
== END 2024-08-07 13:22 | disposition home or self-care (01) | DRG 683 ==
LOC: 3 WEST ACU 15:11
PROVIDERS: Physician Assistant; Physician Assistant Medical; ADMITTING PHYSICIAN Hospitalist; ATTENDING PHYSICIAN Internal Medicine; EMERGENCY PHYSICIAN Emergency Medicine; FAMILY PHYSICIAN Family Medicine
DX: N17.9 Acute kidney failure, unspecified (principal); C64.1 Malignant neoplasm of right kidney, except renal pelvis; N39.0 Urinary tract infection, site not specified; I95.9 Hypotension, unspecified; E78.5 Hyperlipidemia, unspecified; E03.9 Hypothyroidism, unspecified; E87.5 Hyperkalemia; I10 Essential (primary) hypertension; Z11.52 Encounter for screening for COVID-19
CPT/HCPCS: 74176; 76700; 80048; 80053; 81003; 81015; 82533; 82962; 83605; 83690; 84145; 84439; 84443; 85025; 85027; 85652; 86140; 86704; 86706; 86709; 86803; 87040; 87086; 87340; 87502; 87811; 96361; 96374; 99284; J7030

== ENCOUNTER 2025-02-03 10:07 | Outpatient (RCR) | payer OTHER, SELFPAY | END 2025-02-03 23:59 | disposition home or self-care (01) | LOC: RPT 10:07 | PROVIDERS: ATTENDING PHYSICIAN Physician Assistant; FAMILY PHYSICIAN Family Medicine | DX: Z47.1 Aftercare following joint replacement surgery (principal); Z73.6 Limitation of activities due to disability; M62.81 Muscle weakness (generalized); Z96.611 Presence of right artificial shoulder joint | CPT/HCPCS: 97010; 97110; 97140; 97162 ==

== ENCOUNTER → 2025-06-21 11:18 | Outpatient (REF) | payer OTHER, SELFPAY | LOC: HWEVLT 11:18 | PROVIDERS: ATTENDING PHYSICIAN Radiology Vascular & Interventional Radiology | DX: I83.891 Varicose veins of right lower extremity with other complications (principal) | CPT/HCPCS: 36470 ==